=== PATIENT | male | born 1990 | race Two or more races ===

== ENCOUNTER 2023-01-14 11:50 | Emergency (ER) | payer OTHER ==
[~2023-01-14] VITALS: Ht 167.6 cm; Wt 72.7 kg
[2023-01-14 12:03] VITALS: BP 127/84
--- NOTE | 2023-01-14 12:07 | NUR ---
Met with patient for [facility]. Patient is interested in starting Suboxone. Was on Suboxone in the past and worked well. I talked to Deanna and he will see him. I gave patient the card for [facility] to continue Suboxone and my card to call me with any questions.
[2023-01-14] MEDS ORDERED: BUPR1FIL3 SL (12:40)
== END 2023-01-14 13:15 | disposition home or self-care (01) ==
LOC: ER 11:51
DX: F11.10 Opioid abuse, uncomplicated (principal); F15.10 Other stimulant abuse, uncomplicated; Z88.1 Allergy status to other antibiotic agents
CPT/HCPCS: 99281; 99283

== ENCOUNTER 2023-03-08 12:59 | Emergency (ER) | payer MEDICAID ==
[~2023-03-08] VITALS: Ht 167.6 cm; Wt 78.0 kg
[2023-03-08 13:06] VITALS: BP 129/80
--- NOTE | 2023-03-08 14:35 | NUR ---
Met with patient for the Bridge Program. Patient relapsed and wants to start Suboxone again. I talked to Deanna. He will start patient. I gave patient information for [facility] and [facility] to continue MAT treatment. Patient has my card to call me with any questions.
[2023-03-08] MEDS ORDERED: ONDA4TAB12 PO (14:50)
[2023-03-08] MEDS ORDERED: BUPR1FIL3 SL (14:50)
== END 2023-03-08 15:31 | disposition home or self-care (01) ==
LOC: ER 13:00
DX: F11.20 Opioid dependence, uncomplicated (principal); F15.10 Other stimulant abuse, uncomplicated; Z88.1 Allergy status to other antibiotic agents; Z79.899 Other long term (current) drug therapy
CPT/HCPCS: 99283